=== PATIENT | male | born 1950 | race Caucasian/White ===

== ENCOUNTER → 2024-04-13 13:27 | Outpatient (CLI) | payer MEDICARE, OTHER, SELFPAY ==
--- NOTE | 2024-04-13 | DI.ECHO.S_ITS ---
[place] [facility]+ [facility] : : [address] : : [place] : : [id number] : : Phone: [phone] Echocardiogram Report + + :Name: DENIS GUERIN Study Date: 04/13/2024 Height: 73 in : :[facility] ReadingLocation: Weight: 205 lb : : Gender: Male BSA: 2.2 m2 : :: 1950 Age: 73 yrs BP: 114/85 mmHg: :Reason For Study: ANGINA : :Ordering Physician: SUDHAKAR ESTRADA Performed By: Kaitlin Uriarte : :Referring: SUDHAKAR ESTRADA : + + Interpretation Summary 1. The left ventricular contractility is normal. Estimate ejection fraction is greater than 65% with no segmental wall motion abnormalities. No LVH. Age- appropriate diastolic function. 2. The right ventricular contractility is normal. 3. All cardiac chambers are of normal size. 4. Aortic valvular sclerosis without significant stenosis. 5. No obvious intracardiac shunts. 6. No obvious intracardiac masses or thrombi. 7. No hemodynamically significant pericardial effusion. 8. Low right-sided filling pressures. Conclusion: Normal biventricular systolic function with no significant valvular abnormalities. Procedure: A two-dimensional transthoracic echocardiogram with color flow and Doppler was performed. The study quality was technically adequate. There is no prior echocardiogram noted for this patient. The patient was in sinus rhythm with heart rates between 66-72 bpm during the exam. Left Ventricle: The left ventricle is normal in size and wall thickness. The ejection fraction is estimated to be 65-70%. Right Ventricle: The right ventricle is normal in size and function. Atria: The left atrial size is normal. Right atrial size is normal. There is no Doppler evidence for an interatrial shunt. Mitral Valve: The mitral valve leaflets appear to open well. There is no mitral regurgitation noted. Aortic Valve: The aortic valve is mildly calcified. There is mildly reduced leaflet mobility. There is no hemodynamically significant valvular aortic stenosis. No aortic regurgitation is present. Tricuspid Valve: The tricuspid valve leaflets are thin and pliable. There is trace tricuspid regurgitation. The right ventricular systolic pressure is estimated to be at least 21 mmHg based on an estimated right atrial pressure of 3 mm Hg. Pulmonic Valve: The pulmonic valve is not well visualized. There is trace pulmonic regurgitation. Great Vessels: The aortic root is normal size. The ascending aorta is mildly enlarged. The IVC is of normal diameter and collapses greater than 50% with a sniff. This suggests a low right atrial pressure of 3 mm Hg. Pericardium/ Pleura There is no pericardial effusion. There is no pleural effusion. MMode/2D Measurements & Calculations LVIDd: 4.0 cm LVOT diam: 2.3 cm LVIDs: 2.6 cm Ao root diam: 3.5 cm FS: 33.3 % asc Aorta Diam: 3.8 cm IVSd: 1.0 cm Ao Arch Diam (Prox Trans): 3.3 cm LVPWd: 0.78 cm LV amaro. diameter/BSA (cm/m^2): 1.8 LV sys. diameter/BSA (cm/m^2): 1.2 LA A2 area: 18.2 cm2 RA long axis: 4.3 cm LA A4 area: 9.4 cm2 RA area: 11.6 cm2 LA length (vol): 3.9 cm RA vol: 26.6 ml LA vol: 37.0 ml RA : 12.2 ml/m2 LA vol index: 17.0 ml/m2 IVC diam: 1.1 cm RVD1 (basal): 3.4 cm RVD2 (mid): 2.8 cm TAPSE: 1.7 cm Doppler Measurements & Calculations Ao V2 max: 127.1 cm/sec LVOT Max Buzz: 101.2 cm/sec Ao V2 mean: 97.3 cm/sec LV V1 max P.1 mmHg Ao max P.5 mmHg LV V1 VTI: 23.0 cm Ao mean P.0 mmHg MARTHA(I,D): 4.1 cm2 Ao V2 VTI: 23.7 cm MARTHA(V,D): 3.4 cm2 sev ratio: 0.97 MARTHA indexed to BSA (cm^2/m^2): 1.9 MV E max buzz: 47.0 cm/sec TR max buzz: 211.7 cm/sec MV A max buzz: 62.6 cm/sec TR max P.9 mmHg MV E/A: 0.75 PA V2 max: 75.5 cm/sec Med Peak E' Buzz: 7.0 cm/sec PA V2 mean: 51.7 cm/sec E/E' med: 6.8 PA mean P.2 mmHg Lat Peak E' Buzz: 6.6 cm/sec PA pr(Accel): 15.6 mmHg E/E' lat: 7.1 E/e' average: 6.9 MV dec time: 0.35 sec SV(LVOT): 97.3 ml Reading Physician:
--- NOTE | 2024-04-13 | DI.NM.S_ITS ---
PROCEDURE: NM EXERCISE TREADMILL NON NUC COMPARISON: None. INDICATIONS: Other forms of angina pectoris, chronic kidney disease FINDINGS: Rest ECG sinus rhythm 75 bpm. Chandu protocol 6:00, maximum heart rate 145 bpm (92% peak predicted), peak blood pressure 149/90, 7.0 METS, JORY -1%. Exercise ECG sinus tachycardia, no ST segment changes or arrhythmia. The patient described a little chest tightness that occurred briefly in recovery. IMPRESSION: Low risk study. No evidence of exercise-induced ischemia or arrhythmia. Normal hemodynamic response. Fair exercise capacity. Dictated by: Leonor Streeter D.O. on 04/13/2024 at 16:30 Approved by: Leonor Streeter D.O. on 04/13/2024 at 16:32
== END ==
PROVIDERS: Referring Provider Internal Medicine; Visit Provider Internal Medicine
DX: I35.8 Other nonrheumatic aortic valve disorders (principal); I77.810 Thoracic aortic ectasia; I20.89 Other forms of angina pectoris; N18.9 Chronic kidney disease, unspecified
CPT/HCPCS: 93017; 93306